=== PATIENT | female | born 1950 | race Asian ===

== ENCOUNTER → 2020-10-08 | Outpatient (CLI) | payer MEDICARE, OTHER | END | disposition home or self-care (01) | LOC: RADPV 09:00 | PROVIDERS: ATTEND Internal Medicine | DX: M43.16 Spondylolisthesis, lumbar region (principal); M17.12 Unilateral primary osteoarthritis, left knee; M43.17 Spondylolisthesis, lumbosacral region; M48.07 Spinal stenosis, lumbosacral region; M48.08 Spinal stenosis, sacral and sacrococcygeal region; M53.86 Other specified dorsopathies, lumbar region; M25.762 Osteophyte, left knee; M25.462 Effusion, left knee; M25.862 Other specified joint disorders, left knee; Z91.81 History of falling | CPT/HCPCS: 72100; 73560-TC ==

== ENCOUNTER → 2020-11-26 | Outpatient (CLI) | payer MEDICARE, OTHER | END | disposition home or self-care (01) | LOC: RADMN 08:38 | PROVIDERS: ATTEND Internal Medicine | DX: Z01.810 Encounter for preprocedural cardiovascular examination (principal); C54.1 Malignant neoplasm of endometrium; E78.2 Mixed hyperlipidemia | CPT/HCPCS: 71046 ==